=== PATIENT | male | born 2000 | race African-American/Black ===

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

== ENCOUNTER 2019-09-18 11:02 | Emergency (ER) | payer OTHER ==
[2019-09-18 11:10] VITALS: BP 157/136
--- NOTE | 2019-09-18 11:35 | ED ---
Psychiatric Complaint - HPI Summary HPI Summary: 19 year old M presenting to [facility] accompanied by the police with a chief complaint of telling his ex-girlfriend that he was going to kill himself earlier today, who then called the police. The patient rates the pain 0/10 in severity. Symptoms aggravated by nothing. Symptoms alleviated by nothing. Patient reports that he and his ex-girlfriend broke up one month ago. Patient denies any suicidal thoughts, vomiting, or diarrhea. Medication list reviewed. Allergy list reviewed. Home Medications Medication Instructions Recorded Confirmed Type Acetaminophen TAB* [Tylenol TAB*] 650 mg PO Q6H PRN #30 tab 12/20/17 Rx Clindamycin Cap(NF) [Clindamycin 300 mg PO TID #30 cap 12/20/17 Rx Cap 300 mg Cap(NF)] - History Of Current Complaint Chief Complaint: EDMentalHealth Time Seen by Provider: 09/18/19 11:22 Hx Obtained From: Patient Onset/Duration: Sudden Onset Aggravating Factor(s): Nothing Alleviating Factor(s): Nothing Has Suicidal: Denies: Thoughts - Allergies/Home Medications Allergies/Adverse Reactions: Allergies Allergy/AdvReac Type Severity Reaction Status Date / Time No Known Allergies Allergy Verified 09/18/19 11:04 Home Medications: Home Medications Acetaminophen TAB* [Tylenol TAB*] 650 mg PO Q6H PRN #30 tab 12/20/17 [Rx] Clindamycin Cap(NF) [Clindamycin Cap 300 mg Cap(NF)] 300 mg PO TID #30 cap 12/20 [Rx] PMH/Surg Hx/FS Hx/Imm Hx Endocrine/Hematology History: Denies: Hx Diabetes Cardiovascular History: Denies: Hx Hypertension - Surgical History Surgical History: None Infectious Disease History: No Infectious Disease History: Denies: Traveled Outside the [place] in Last 30 Days - Family History Known Family History: Negative: Hypertension - Social History Alcohol Use: Rare Hx Substance Use: No Substance Use Type: Reports: None Hx Tobacco Use: Yes Smoking Status (MU): Current Some Day Smoker Review of Systems Negative: Vomiting, Diarrhea Psychological: Other - Denies suicidal thoughts All Other Systems Reviewed And Are Negative: Yes Physical Exam - Summary Physical Exam Summary: Constitutional: Well-developed, Well-nourished, Alert. (-) Distressed Skin: Warm, Dry HENT: Normocephalic; Atraumatic Eyes: Conjunctiva normal Neck: Musculoskeletal ROM normal neck. (-) JVD, (-) Stridor, (-) Tracheal deviation Cardio: Rhythm regular, rate normal, Heart sounds normal; Intact distal pulses; Radial pulses are 2+ and symmetric. (-) Murmur Pulmonary/Chest wall: Effort normal. (-) Respiratory distress, (-) Wheezes, (-) Rales Abd: Soft, (-) tenderness, (-) Distension, (-) Guarding, (-) Rebound Musculoskeletal: (-) Edema Lymph: (-) Cervical adenopathy Neuro: Alert, Oriented x3 Psych: Mood and affect Normal Triage Information Reviewed: Yes Vital Signs On Initial Exam: Initial Vitals Temp Pulse Resp BP Pulse Ox 98.1 F 79 16 157/136 100 09/18/19 11:04 09/18/19 11:04 09/18/19 11:04 09/18/19 11:04 09/18/19 11:04 Vital Signs Reviewed: Yes Procedures - Sedation Patient Received Moderate/Deep Sedation with Procedure: No Diagnostics - Vital Signs Vital Signs Temp Pulse Resp BP Pulse Ox 09/18/19 11:04 98.1 F 79 16 157/136 100 - Laboratory Result Diagrams: 09/18/19 11:52 09/18/19 11:52 Lab Statement: Any lab studies that have been ordered have been reviewed, and results considered in the medical decision making process. Course/Dx - Course Course Of Treatment: Patient is here after telling his ex-girlfriend he would kill himself. Patient states he was not actually thinking and has no suicidal ideation at this time. Patient was medically cleared by myself. Patient was evaluated by the psychiatric team and they deemed him safe for outpatient therapy. - Differential Dx/Clinical Impression Provider Diagnosis: Depressive episode Discharge ED - Sign-Out/Discharge Documenting (check all that apply): Patient Departure - Discharge - Discharge Plan Condition: Stable Disposition: HOME Referrals: [facility] [Other] (YOU CAN WALK INTO [facility] BETWEEN 8:30- 4:30 PM SUNDAY- SUNDAY AND BE SEEN BY THERAPIST. THEY ARE NOT GIVING SPECIFIC APPOINTMENTS AT THIS TIME.) - Billing Disposition and Condition Condition: STABLE Disposition: Home - Attestation Statements Document Initiated by Scribe: Yes Documenting Scribe: Ama Hui Provider For Whom Scribe is Documenting (Include Credential): Pedro Elder MD Scribe Attestation: I, Ama Hui, linoed for Pedro Elder MD on 09/18/19 at 1608. Scribe Documentation Reviewed: Yes Provider Attestation: The documentation as recorded by the Ama palmer accurately reflects the service I personally performed and the decisions made by me, Pedro Elder MD Status of Scribe Document: Viewed
[2019-09-18 11:47] LABS: Urine Appearance Clear; Urine Bilirubin Negative (Negative); Urine Blood Negative (Negative); Urine Color Amber; Urine Glucose Negative (Negative); Urine Ketones Trace (Negative); Urine Nitrite Negative (Negative); Urine Protein Negative (Negative); Urine Specific Gravity 1.029 (1.010-1.030); Urine Urobilinogen Negative (Negative)
[2019-09-18 11:59] LABS: ABS Lymphocytes 1.2 10^3/ul (1.0-4.8); ABS Monocytes 0.4 10^3/ul (0-0.8); ABS Neutrophils 4.4 10^3/ul (1.5-7.7); Eosinophil % 0.4 %; Hematocrit 46 % (42-52); Hemoglobin 15.3 g/dL (14.0-18.0); Lymphocyte % 19.3 %; Mean Corpuscular HGB Conc 33 g/dL (31-36); Mean Corpuscular Hemoglobin 27 pg (27-31); Mean Corpuscular Volume 80 fL (80-94); Mean Platelet Volume 8.4 fL (7.4-10.4); Nucleated Red Blood Cells % 0.1; Platelet Count 246 10^3/uL (150-450); Red Blood Count 5.77 10^6 /uL (4.18-5.48); Red Cell Distribution Width 15 % (10-15)
[2019-09-18 12:04] LABS: Urine Benzodiazepine Screen None Detected (None Detect); Urine Opiates Screen None Detected (None Detect)
[2019-09-18 12:22] LABS: ALT 16 U/L (7-52); AST 21 U/L (13-39); Albumin 4.8 g/dL (3.2-5.2); Albumin/Globulin Ratio 1.5 (1-3); Alkaline Phosphatase 68 U/L (34-104); Anion Gap 7 mmol/L (2-11); BUN/Creatinine Ratio 14.6 (8-20); Blood Urea Nitrogen 15 mg/dL (6-24); CO2 Carbon Dioxide 26 mmol/L (22-32); Calcium 10.2 mg/dL (8.6-10.3); Chloride 105 mmol/L (101-111); EGFR African American 111.4 (>60); EGFR Non-African American 92.1 (>60); Globulin 3.2 g/dL (2-4); Glucose 94 mg/dL (70-100); Sodium 138 mmol/L (135-145)
[2019-09-18 12:58] LABS: Acetaminophen < 15 mcg/mL; Alcohol < 10 mg/dL (<10); Salicylate < 2.50 mg/dL (<30)
== END 2019-09-18 14:26 | disposition home or self-care (01) ==
LOC: ED 11:02
DX: F32.9 Major depressive disorder, single episode, unspecified (principal); F17.200 Nicotine dependence, unspecified, uncomplicated
CPT/HCPCS: 36415; 80053; 80307; 80320; 80329; 81003; 85025; 99285; G0480

== ENCOUNTER 2019-10-15 14:01 | Emergency (ER) | payer OTHER ==
[2019-10-15 15:01] LABS: Urine Appearance Clear; Urine Bilirubin Negative (Negative); Urine Blood 1+ (Negative); Urine Color Straw; Urine Glucose Negative (Negative); Urine Ketones Negative (Negative); Urine Nitrite Negative (Negative); Urine Protein Negative (Negative); Urine Urobilinogen Negative (Negative)
[2019-10-15 15:12] LABS: Urine Bacteria Absent (Absent); Urine Red Blood Cell 3+(>10/hpf) (Absent); Urine White Blood Cell 1+(6-10/hpf) (Absent)
--- NOTE | 2019-10-15 15:17 | ED ---
GI/ HPI - HPI Summary HPI Summary: This patient is a 19-year-old male presenting to the ED with CC of hematuria. States after using the restroom this morning he noticed a small streak of bright red blood. He states there were no clots. He states it was a very minimal amount. This is never happened to him before. Denies chance of STDs with last sexual partner 4 months ago, , but however has had a history of STDs. He denies any burning or pain with urination. He denies any suprapubic or abdominal tenderness. Denies any back pain bilaterally. No history of kidney stones. He denies any fevers, sweats, chills. No testicular tenderness. No penile pain. Patient takes no medications, denies any allergies. No family history of urogenital cancer or torsion. - History of Current Complaint Chief Complaint: EDUrogenitalProblems Time Seen by Provider: 10/15/19 14:29 Stated Complaint: BLOOD IN URINE PER PT Hx Obtained From: Patient Onset/Duration: Started Hours Ago Timing: Constant Severity: Mild Current Severity: None Pain Intensity: 0 Associated Signs and Symptoms: Positive: Hematuria. Negative: Hematemesis, Back Pain, Pallor, Syncope, Nausea, Vomiting, Bruising, UTI Symptoms Additional Signs & Symptoms: Negative: Penile Swelling, Penile Discharge, Lesions Aggravating Factor(s): Nothing Alleviating Factor(s): Nothing - Allergy/Home Medications Allergies/Adverse Reactions: Allergies Allergy/AdvReac Type Severity Reaction Status Date / Time No Known Allergies Allergy Verified 10/15/19 14:46 Home Medications: Home Medications NK [No Home Medications Reported] 10/15/19 [History Confirmed 10/15/19] PMH/Surg Hx/FS Hx/Imm Hx Previously Healthy: Yes Endocrine/Hematology History: Denies: Hx Diabetes Cardiovascular History: Denies: Hx Hypertension Psychiatric History: Denies: Hx Eating Disorder, Hx Depression, Hx Post Traumatic Stress Disorder , Hx Schizophrenia, Hx Bipolar Disorder, Hx Suicide Attempt - Immunization History Hx Pertussis Vaccination: No Immunizations Up to Date: Yes Infectious Disease History: No Infectious Disease History: Denies: Traveled Outside the [place] in Last 30 Days - Family History Known Family History: Positive: None - Pt denies FMHX Negative: Hypertension - Social History Occupation: Employed Part-time Lives: Alone Alcohol Use: Rare Hx Substance Use: No Substance Use Type: Reports: Marijuana Substance Use Comment - Amount & Last Used: pt states he smoked pot few days ago. Hx Tobacco Use: Yes Smoking Status (MU): Light Every Day Tobacco Smoker Review of Systems Negative: Fever, Chills, Fatigue, Skin Diaphoresis Negative: Palpitations, Chest Pain Negative: Shortness Of Breath, Cough Positive: hematuria Negative: Arthralgia, Myalgia Skin: Negative Neurological/Mental Status: Negative All Other Systems Reviewed And Are Negative: Yes Physical Exam Triage Information Reviewed: Yes Vital Signs On Initial Exam: Initial Vitals Temp Pulse Resp BP Pulse Ox 99.3 F 104 16 168/92 96 10/15/19 14:06 10/15/19 14:06 10/15/19 14:06 10/15/19 14:06 10/15/19 14:06 Vital Signs Reviewed: Yes Appearance: Positive: Well-Appearing, Well-Nourished Skin: Positive: Warm, Skin Color Reflects Adequate Perfusion Head/Face: Positive: Normal Head/Face Inspection Eyes: Positive: EOMI, LOGAN, Conjunctiva Clear Neck: Positive: Supple, Nontender, No Lymphadenopathy Respiratory/Lung Sounds: Positive: Clear to Auscultation, Breath Sounds Present Cardiovascular: Positive: RRR, Pulses are Symmetrical in both Upper and Lower Extremities Bowel Sounds: Positive: Present Musculoskeletal: Positive: Normal, Strength/ROM Intact Neurological: Positive: Speech Normal Psychiatric: Positive: Normal, Affect/Mood Appropriate AVPU Assessment: Alert Procedures - Sedation Patient Received Moderate/Deep Sedation with Procedure: No Diagnostics - Vital Signs Vital Signs Temp Pulse Resp BP Pulse Ox 10/15/19 14:06 99.3 F 104 16 168/92 96 - Laboratory Lab Results: Lab Results 10/15/19 10/15/19 Range/Units 14:48 14:48 Urine Color Straw Urine Appearance Clear Urine pH 8.0 (5-9) Ur Specific [place] 1.010 (1.010-1.030) Urine Protein Negative (Negative) Urine Ketones Negative (Negative) Urine Blood 1+ A (Negative) Urine Nitrate Negative (Negative) Urine Bilirubin Negative (Negative) Urine Urobilinogen Negative (Negative) Ur Leukocyte Esterase Negative (Negative) Urine Glucose Negative (Negative) C.trachomatis (Amp Det) Pending N.gonorrhoeae (Amp Det) Pending Lab Statement: Any lab studies that have been ordered have been reviewed, and results considered in the medical decision making process. GIGU Course/Dx - Course Course Of Treatment: During his course treatment, the patient is evaluated for gross hematuria. On physical exam, patient has no gross hematuria in urinalysis. Urinalysis reveals no leukocytes. 1+ RBC. Patient denies any pain. No abdominal tenderness on palpation throughout. Lungs CTA, or murmur. Vital signs are stable. This patient is denying any pain with no evidence of kidney stone pathology or other concerning symptoms, patient will be discharged with close hematuria. PARISH/julian pending. - Diagnoses Provider Diagnoses: Hematuria - Critical Care Time Critical Care Statement: Critical care time is provided exclusive of any time spent performing procedures. Discharge ED - Sign-Out/Discharge Documenting (check all that apply): Patient Departure - Discharge Plan Condition: Stable Disposition: HOME Patient Education Materials: Hematuria (ED) Referrals: No Primary Care Phys,NOPCP [Primary Care Provider] - Additional Instructions: Return to the ED if you develop back pain associated with blood or you develop fevers - Billing Disposition and Condition Condition: STABLE Disposition: Home - Attestation Statements Provider Attestation: I was available for consult. This patient was seen by the TATY. The patient was not presented to, seen by, or examined by me. Pedro Elder MD
[2019-10-15 15:33] VITALS: BP 155/81
[2019-10-17 12:51] LABS: Chlamydia trachomatis NAA Negative (Negative); Neisseria gonorrhoeae (GC) NAA Negative (Negative)
== END 2019-10-15 15:32 | disposition home or self-care (01) ==
LOC: ED 14:01
DX: R31.9 Hematuria, unspecified (principal); F17.210 Nicotine dependence, cigarettes, uncomplicated
CPT/HCPCS: 81003; 81015; 87086; 87491; 87591; 99282